=== PATIENT | male | born 1955 | race Caucasian/White ===

== ENCOUNTER → 2017-07-16 | Outpatient (CLI) | payer BC | END | disposition disaster alternative care site (69) | LOC: GRAD 13:55 | DX: M12.811 Other specific arthropathies, not elsewhere classified, right shoulder (principal); M75.101 Unspecified rotator cuff tear or rupture of right shoulder, not specified as traumatic; S43.111A Subluxation of right acromioclavicular joint, initial encounter; M19.211 Secondary osteoarthritis, right shoulder; M85.811 Other specified disorders of bone density and structure, right shoulder ==